=== PATIENT | female | born 1970 | race Caucasian/White ===

== ENCOUNTER 2017-06-14 11:28 | Emergency (ER) | payer OTHER ==
[~2017-06-14] VITALS: Ht 175.3 cm; Wt 63.5 kg
[2017-06-14] MEDS ORDERED: TUCKS1 EAC1 TOP (12:21)
[2017-06-14] MEDS ORDERED: ANUSOL-HC25 MG RECTAL (12:21)
== END 2017-06-14 12:30 | disposition home or self-care (01) ==
LOC: ER 11:28
DX: K64.9 Unspecified hemorrhoids (principal)